=== PATIENT | female | born 1950 | race Caucasian/White ===

== ENCOUNTER 2025-06-08 19:23 | Emergency (ER) | payer SELFPAY ==
[~2025-06-08] VITALS: Ht 154.9 cm; Wt 90.7 kg
[2025-06-08 19:46] VITALS: TEMP 98.9
[2025-06-08] MEDS ORDERED: ACETAMINOPHEN ES 500 MG TABLET ONE (20:05)
[2025-06-08] MEDS: ACETAMINOPHEN ES 500 MG TABLET PO ONE (20:08)
[2025-06-08] MEDS ORDERED: IBUP-1490 PO (21:57)
[2025-06-08 22:11] VITALS: BP 144/69; O2SAT 96
== END 2025-06-08 22:12 | disposition home or self-care (01) ==
LOC: ER 19:23
DX: S13.4XXA Sprain of ligaments of cervical spine, initial encounter (principal); V49.09XA Driver injured in collision with other motor vehicles in nontraffic accident, initial encounter; W22.11XA Striking against or struck by driver side automobile airbag, initial encounter; Y93.89 Activity, other specified; Y92.410 Unspecified street and highway as the place of occurrence of the external cause; Y99.9 Unspecified external cause status
CPT/HCPCS: 70450-TC; 72125-TC; 72128-TC